=== PATIENT | female | born 1995 | race Caucasian/White ===

== ENCOUNTER 2020-10-21 17:00 | Emergency (ER) | payer BC ==
[2020-10-21 17:14] VITALS: BP 121/77; PULSE 95; TEMP 99.3; BMI 23.2
== END 2020-10-21 18:28 | disposition home or self-care (01) ==
LOC: FER 17:00
DX: R05 Cough (principal); J02.9 Acute pharyngitis, unspecified
CPT/HCPCS: 71046-TC-FY; 99283-25